=== PATIENT | female | born 1970 | race American Indian/Alaskan Native ===

== ENCOUNTER 2016-06-02 12:55 | Emergency (ER) | payer BC ==
[~2016-06-02] VITALS: Ht 175.3 cm; Wt 116.7 kg
[~2016-06-02 12:55] MED LIST: FOLI-17 PO; HYDR-3138 PO; LEDI1TAB PO; PRED10TA PO; PRED50TA PO; SERT50TA PO; ZOLP5TAB6 PO
[2016-06-02] MEDS ORDERED: SODIUM CHLORIDE 0.9% 1,000 ML IV ONE (13:32)
[2016-06-02] MEDS ORDERED: SODIUM CHLORIDE 0.9% 1,000ML IVBOLUS ONE (14:00)
[2016-06-02 14:20] LABS: HEMOGLOBIN 14.5 g/dL (11.7-16.4)
[2016-06-02 14:33] LABS: BLOOD UREA NITROGEN 9 mg/dL (7-18)
[2016-06-02 18:11] VITALS: BP 122/57
[2016-06-02] MEDS ORDERED: OMEP40CA6 PO (18:14)
[2016-06-02] MEDS ORDERED: MYCO500T3 PO (18:14)
== END 2016-06-02 18:53 | disposition home or self-care (01) ==
LOC: ED 18:47
DX: B34.9 Viral infection, unspecified (principal)
CPT/HCPCS: 36415; 71020; 80048; 82040; 83605; 85025; 85610; 85730; 87040

== ENCOUNTER 2016-12-06 13:02 | Emergency (ER) | payer BC ==
[~2016-12-06] VITALS: Ht 175.3 cm; Wt 115.0 kg
[~2016-12-06 13:02] MED LIST changes: -HYDR-3138 PO; +HYDR-3237 PO; +MYCO500T3 PO; +OMEP40CA6 PO
[2016-12-06] MEDS ORDERED: CLOB15CR19 TP (13:38)
[2016-12-06] MEDS ORDERED: FOLI-17 PO (13:38)
[2016-12-06] MEDS ORDERED: TRAM50TA2 PO (13:38)
[2016-12-06] MEDS ORDERED: MYCO500T PO (13:38)
[2016-12-06] MEDS ORDERED: MOME13HF2 INH (13:38)
[2016-12-06] MEDS ORDERED: ALBU6.7H PO (13:38)
[2016-12-06] MEDS ORDERED: OMEP40CA6 PO (13:38)
[2016-12-06] MEDS ORDERED: SERT100T5 PO (13:38)
[2016-12-06] MEDS ORDERED: KETOROLAC 30 MG/1 ML ONE (13:44)
[2016-12-06 13:59] LABS: HEMATOCRIT 43.5 % (34.6-47.8); HEMOGLOBIN 14.4 g/dL (11.7-16.4); WHITE BLOOD COUNT 9.1 x10^3/uL (3.4-10)
[2016-12-06] MEDS ORDERED: SODIUM CHLORIDE FLUSH 10ML SYR IVF ONE (14:00)
[2016-12-06] MEDS ORDERED: KETOROLAC 30 MG/1 ML IVPush ONE (14:00)
[2016-12-06 14:11] LABS: ASPARTATE AMINO TRANSFERASE 24 U/L (15-37); BLOOD UREA NITROGEN 14 mg/dL (7-18)
[2016-12-06 14:19] LABS: IS PT STATUS REG ER OR PRE ER? YES
[2016-12-06] MEDS ORDERED: OMNIPAQUE 350 MG/ML, 100ML BOTTLE ONE (16:39)
[2016-12-06 17:26] VITALS: BP 125/69
== END 2016-12-06 17:29 | disposition home or self-care (01) ==
LOC: ED 17:10
DX: R07.89 Other chest pain (principal); R06.00 Dyspnea, unspecified; J20.8 Acute bronchitis due to other specified organisms; I10 Essential (primary) hypertension
CPT/HCPCS: 36415; 71010; 71275; 80053; 83880; 84484; 84703; 85025; 85379; 93005; 96374; 99285; J1885; Q9967